=== PATIENT | male | born 1955 | race Caucasian/White ===

== ENCOUNTER → 2024-01-26 | Outpatient (CLI) | payer OTHER | END | disposition home or self-care (01) | LOC: SHCH 13:25 | PROVIDERS: ATTEND Internal Medicine Cardiovascular Disease | DX: I48.3 Typical atrial flutter (principal) | CPT/HCPCS: 93306 ==

== ENCOUNTER → 2025-01-24 | Outpatient (CLI) | payer OTHER ==
[~2025-01-24] MED LIST: GABA-1405 PO; GARL10002 PO; IOHEXOL-350 75 ML VIAL IV ONE; METF-446 PO; MULT1CAP17 PO; RAMI1.2529 PO; RIVA20TA PO; SIMV10TA97 PO; TIRZ5PEN SQ; TURM500C4 PO; [UNRECOGNIZED DRUG - OTHER] PO
--- NOTE | 2025-01-25 12:13 | HMCIMG ---
EXAM: CT Abdomen and Pelvis with IV contrast CLINICAL HISTORY: ABDOMINAL PAIN TECHNIQUE: Axial computed tomography images of the abdomen and pelvis with intravenous contrast. CONTRAST: with intravenous contrast. COMPARISON: None provided. FINDINGS: LUNG BASES: The lung bases appear clear. No pleural effusions are seen. LIVER: Unremarkable. GALLBLADDER AND BILE DUCTS: No biliary ductal dilatation is evident. Post cholecystectomy status. PANCREAS: Unremarkable. SPLEEN: Unremarkable. ADRENAL GLANDS: Unremarkable. KIDNEYS, URETERS, AND BLADDER: The kidneys appear within normal limits. There is no hydronephrosis or hydroureter. No urinary calculi are seen. STOMACH AND BOWEL: Unremarkable appearance of the stomach. No evidence of bowel obstruction. No evidence suggesting enteritis or colitis. Multiple diverticula in the descending and sigmoid colon. APPENDIX: No evidence of acute appendicitis on CT examination. PERITONEUM: No free fluid. No free air. LYMPH NODES: No lymphadenopathy is evident. REPRODUCTIVE: Bilateral moderate hydrocele. Calcification in the left sacrotal sac, correlated with US VASCULATURE: No evidence of abdominal aortic aneurysm. BONES: No aggressive appearing osseous lesion. No acute osseous pathology evident. ABDOMINAL WALL Inguinal hernia on the right side with herniation of peritoneal fat, defect measures approximately 2.8 cm. IMPRESSION: 1. No acute intraabdominal or pelvic pathology. 2. Right inguinal hernia with herniation of peritoneal fat, defect measuring approximately 2.8 cm. 3. Bilateral moderate hydrocele with a calcification in the left scrotal sac. Ultrasound is recommended. /[place]
== END | disposition home or self-care (01) ==
LOC: RAH 07:37
PROVIDERS: ATTEND Surgery
DX: K40.90 Unilateral inguinal hernia, without obstruction or gangrene, not specified as recurrent (principal); K57.30 Diverticulosis of large intestine without perforation or abscess without bleeding; N50.89 Other specified disorders of the male genital organs; N43.3 Hydrocele, unspecified; R10.9 Unspecified abdominal pain; Z90.49 Acquired absence of other specified parts of digestive tract
CPT/HCPCS: 74177; Q9967